=== PATIENT | female | born 1970 | race Hispanic/Latino ===

== ENCOUNTER → 2018-12-09 | Outpatient (CLI) | payer OTHER | END | disposition home or self-care (01) | LOC: RAH 12:54 | PROVIDERS: ATTEND Obstetrics & Gynecology | DX: Z12.31 Encounter for screening mammogram for malignant neoplasm of breast (principal) | CPT/HCPCS: 77067 ==

== ENCOUNTER 2018-12-15 11:07 | Inpatient (IN) | payer OTHER | END 2018-12-17 10:35 | disposition home or self-care (01) | LOC: DAHIP 11:07 → WSH 16:40 | PROC: 0UT90ZZ Resection of Uterus, Open Approach (ICD-10-PCS; principal; 2018-12-15 13:40) | PROC: 0UN90ZZ Release Uterus, Open Approach (ICD-10-PCS; 2018-12-15 13:40) | DX: D25.9 Leiomyoma of uterus, unspecified (principal); N94.6 Dysmenorrhea, unspecified; N92.0 Excessive and frequent menstruation with regular cycle; G89.29 Other chronic pain; N73.6 Female pelvic peritoneal adhesions (postinfective); D64.9 Anemia, unspecified ==